=== PATIENT | female | born 1945 | race Caucasian/White ===

== ENCOUNTER 2016-11-29 10:18 | Emergency (ER) | payer MEDICARE, BC ==
[2016-11-29 10:40] LABS: Hematocrit 41.4 % (37.0-47.0); Hemoglobin 13.9 gm/dL (12.5-16.0); Mean Cell Volume 87.2 fl (78-100); Mean Corpuscular Hemoglobin 29.3 pg (27-31); Mean Corpuscular Hgb Conc 33.6 g/dl (32-36); Mean Platelet Volume 10.7 fl (6.0-9.5); Neutrophil # 3.6 K/mm3 (1.3-6.0); Neutrophil % 54.5 % (42-75.0); Platelet Count 251 K/mm3 (150-450); Red Blood Count 4.75 M/mm3 (4.2-5.4); Red Cell Distribution Width 13.4 % (11.5-14.0); White Blood Count 6.7 K/mm3 (4.0-10.5)
--- NOTE | 2016-11-29 10:40 | ERNOTE ---
Medical Problem HPI - Narrative Date of Service: 11/29/16 - General Chief Complaint: General Assessment Time Seen by Provider: 11/29/16 10:20 Source: patient Exam Limitations: no limitations - Immun/Allergies/Home Medications Immunizations: IMMUNIZATION HX Immunizations Up to Date Yes History of Influenza Vaccine No Hx Pneumococcal Vaccination Yes Allergies/Adverse Reactions: Allergies iodine Allergy (Verified 05/17/16 08:04) Sulfa (Sulfonamide Antibiotics) Allergy (Verified 05/17/16 08:04) Home Medications: HOME MEDICATIONS Furosemide [Lasix] 20 mg PO Q2D 11/13/16 [Last Taken Unknown] Potassium Chloride [Klor-Con 10] 10 meq PO Q2D 11/13/16 [Last Taken Unknown] Ramipril [Altace] 5 mg PO DAILY 11/13/16 [Last Taken Unknown] Rivaroxaban [Xarelto] 15 mg PO QPM 11/13/16 [Last Taken Unknown] glipiZIDE [Glipizide Xl] 10 mg PO BID 11/13/16 [Last Taken Unknown] - History of Present History Narrative: Pt. comes in with c/o irregular heart beat during cardiac rehab. Cardiac rehab therapist notes that pt. had three, three beat runs of VT while exercising. Pt. denies any SOB, CP, feeling palpitations, fever, lightheadedness, edema, cough, but does state that she has had recent nasal congestion and had an [place] in July and has a pacemaker for Afib with bradycardia. Review of Systems - Review of Systems Constitutional: Present: recent illness. Absent: fever, chills, weakness, fatigue, malaise EYE: Present: no symptoms reported ENT: Present: nose congestion, nasal drainage. Absent: ear pain, sore throat Respiratory: Present: no symptoms reported. Absent: shortness of breath, cough , wheezing Cardiology: Present: no symptoms reported. Absent: chest pain, palpitations, syncope, edema Gastrointestinal/Abdominal: Present: no symptoms reported. Absent: nausea, vomiting, diarrhea Genitourinary: Present: no symptoms reported. Absent: frequency, decreased urinary output Musculoskeletal: Present: no symptoms reported. Absent: back pain, joint pain Skin: Present: no symptoms reported Neurological: Present: no symptoms reported. Absent: headache, dizziness/light- headedness, numbness, tingling All Other Systems: All systems neg except as marked - Patient's Past Medical History Patient History - Medical: Diabetes Type 2 Patient History - Cardiac/Respiratory: Angina, Bronchitis, Myocardial Infarction , Pneumonia Patient History - Cancer: No Hx of Cancer Patient History - Surgical Procedures: No surgical history Patient History - Other: None - Social History Living Situations: home Abuse History: No History of abuse Psych History: No pertinent hx Alcohol Use: none Drug Use: none - Immunizations Immunizations Up to Date: Yes Hx Pneumococcal Vaccination: Yes History of Influenza Vaccine: No Physical Exam - Physical Exam General Appearance: Present: wd/wn, alert, no apparent distress Eye Exam: Normal inspection: bilateral, PERRL: bilateral, EOMI: bilateral Ears, Nose, Throat: Present: nasal congestion, normal pharynx Neck: Present: normal inspection, nontender. Absent: lymphadenopathy (R), lymphadenopathy (L) Respiratory: Present: no respiratory distress, normal breath sounds, no accessory muscle use, chest nontender, lungs clear Cardiovascular/Chest: Present: regular rate, rhythm, no murmur, normal peripheral pulses Gastrointestinal/Abdominal: Present: normal bowel sounds, nontender, nondistended, soft, no organomegaly Back Exam: Present: normal inspection, normal range of motion, no CVA tenderness , no vertebral tenderness. Absent: vertebral tenderness, decreased range of motion, muscle spasm Extremity Exam: Present: normal inspection, non-tender, normal range of motion, no edema Neurological Exam: Present: alert, oriented, normal mood/affect, no motor/ sensory deficits. Absent: creative coordinator II-XII nml as tested Skin Exam: Present: normal color, warm/dry. Absent: pallor, skin rash ED Progress - Date and Time Seen: Date and Time: 11/29/16 11:40 Discussed with her EP doctor Dr Robbins and we will place holter on pt for two weeks and have her follow up with them in two weeks. Pt. did not have any events here and has an AV pacemaker. - Results and Orders Patient's Lab Results:: I have reviewed the patient's lab results. - Vital Signs Patient's Vital Signs:: I have reviewed the patient's vital signs. Vital Signs: Vital Signs 11/29/16 10:22 Temperature 35.5 C L Pulse Rate 52 L Respiratory 16 Rate Blood Pressure 150/59 O2 Sat by Pulse 95 Oximetry - EKG EKG: other - atrial case EKG read: Reviewed by me EKG Comments: Interpretted by Dr Cortez - X-Ray X-Ray #1 X-Ray: chest Interpretation: Reviewed by me X-ray Comments: no consolidation or infiltrate noted - Progress/Reassessment Chief Complaint: General Assessment Progress:: Unchanged Departure - Departure Clinical Impression: Arrhythmia Qualifiers: Arrhythmia type: unspecified cardiac arrhythmia Qualified Code(s): I49.9 - Cardiac arrhythmia, unspecified Disposition: Home self-care Condition: Good Instructions: Heartbeats (How the Heart Works) Additional Instructions: Please follow up with primary provider in 2-3 days and with your EP physicians in 2 weeks. Referrals: Brandy Nolasco MD [Primary Care Provider] -
--- OUTSIDE RECORDS SUMMARY | 2016-11-29 10:54 | XMS REPORT | Continuity of Care Document ---
:1945 Author Organization [facility] ([facility]) Address [place] [address] Phone [phone] Care Team Providers Name Role Phone Brandy Nolasco Primary Care Provider [phone] Source Comments This disclosure is being made pursuant to the Care Everywhere program, applicable federal and state laws, and may not contain all informaitonavailable regarding this patient.[facility] ([facility]) Active Allergies and Adverse Reactions Allergen Noted Date Severity Reactions Comments Iodine 10/03/2009 Respiratory "pain in her heart" Distress,Rhinorrhea Sulfa (Sulfonamide 10/03/2009 Rash Antibiotics) Current Medications Prescription Sig. Disp. Refills Start Date End Date Status furosemide 20 mg Take 20 mg by Active tablet mouth every 48 hours. ramipril 5 mg Take 5 mg by Active capsule mouth daily. glipiZIDE 10 mg Take 10 mg by Active tablet mouth 2 times daily with meals. potassium chloride Take 10 mEq by Active 10 mEq XR tablet mouth every 48 hours. rivaroxaban Take 1 tablet 30 tablet 0 06/26/2016 Active (XARELTO) 15 mg (15 mg total) tablet by mouth every evening with dinner. meclizine Take 25 mg by 11/21/2016 Discontinued (ANTIVERT) 25 mg mouth 3 times tablet daily as needed. carvedilol 3.125 mg Take 3.125 mg 11/21/2016 Discontinued tablet by mouth 2 times daily with meals. Active Problems Problem Noted Date Hyperlipidemia 10/18/2016 S/P cardiac pacemaker procedure -- [employer] 06/24/2016 Paroxysmal atrial fibrillation 06/19/2016 Overview: Diagnosed 06/2016 in the setting of stress induced cardiomyopathy. 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 Overview: Resolved Atopic dermatitis 02/03/2014 Fatty liver 01/14/2014 Hepatitis A 01/14/2014 DM type 2 (diabetes mellitus, type 2) 10/03/2009 Most Recent Encounters Date Type Specialty Providers Description 11/21/2016 Office Visit Cardiac Rehabilitation Demetri, Dx: Abnormal EKG MD Ayana (Primary Dx) 10/18/2016 Telephone Heart and Vascular Demetri, Chief Comp: MD Ayana Discuss Treatment Options 10/02/2016 Hospital [facility] V[facility] Default, Other Chief Comp: Encounter Billg - Defo Patient Reported Demetri, Reason For Visit MD Ayana 10/02/2016 Office Visit Heart and Vascular Default, Other Dx: S/P cardiac Billg - Defo pacemaker Demetri, procedure -- MD Ayana [employer] (Primary Dx) 09/25/2016 Office Visit Heart and Vascular Default, Other Chief Comp: Billg - Defo Patient Reported Demetri, Reason For Visit MD Ayana Social History Tobacco Use Types Packs/Day Years Used Date Never Smoker Smokeless Tobacco: Never Used Tobacco Cessation:Counseling Given: Yes Comments: Alcohol Use Drinks/Week oz/Week Comments No Last Filed Vital Signs Vital Sign Reading Time Taken Blood Pressure 100/76 11/21/2016 9:31 AM CDT Pulse 54 11/21/2016 9:31 AM CDT Temperature 36.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 (97 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 Respiratory Rate 16 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 Height 1.651 m (5' 5") 11/21/2016 9:29 AM CDT Weight 108.7 kg (239 lb 10.2 oz) 11/21/2016 9:29 AM CDT Body Mass Index 39.88 11/21/2016 9:29 AM CDT Oxygen Saturation 95% 11/21/2016 9:31 AM CDT Plan of Care Date Type Specialty Providers Description 02/19/2017 Appointment Heart and Vascular Demetri, Chief Comp: Patient MD Ayana Reported Reason For [address] [place] [address] [phone] (Fax) Health Maintenance Due Date Last Done Comments HCV Screening 1945 Hepatitis B Vaccine (1 of 3 - Primary 1945 Series) Tdap Vaccine 1957 Td Vaccine 1964 Mammogram 1986 Colonoscopy 09/13/1996 Zoster Vaccine 2006 DIABETIC: Cholesterol 10/03/2010 10/03/2009 Diabetic: Hdl 10/03/2010 10/03/2009 Diabetic: Ldl 10/03/2010 10/03/2009 DIABETIC: Microalbumin 10/03/2010 10/03/2009 DIABETIC: Triglycerides 10/03/2010 10/03/2009 DIABETIC: Foot Exam 01/15/2011 Osteoporosis Screening (DXA Bone Density) 2011 Pneumococcal Vaccine (1 of 2 - PCV13) 2011 DIABETIC: Retinal Eye Exam 01/14/2015 01/14/2014, 01/14/2014 DIABETIC: Hemoglobin A1C 12/20/2016 06/22/2016, 10/03/2009 Influenza Vaccine: Seasonal (Season Ended) 2017 Results from Last 3 Months ECG - EKG 12 LEAD (11/21/2016 9:50 AM)Only the most recent of2 resultswithin the time period is included. Component Value Range ECG SEVERITY - ABNORMAL ECG - VENT. RATE 51 bpm RR 1176 ms P-R INTERVAL 186 ms QRSD INTERVAL 90 ms QT INTERVAL 408 ms QTC INTERVAL 376 ms P AXIS -14 degrees QRS AXIS -25 degrees T WAVE AXIS 158 degrees REPORT ATRIAL-PACED COMPLEXES BORDERLINE LEFT AXIS DEVIATION CONSIDER ANTERIOR INFARCT NONSPECIFIC T ABNORMALITIES, ANT-LAT LEADS Interpreting Physician: James Breen MD
[2016-11-29 10:59] LABS: Troponin I Less than 0.017 ng/ml (0.00-0.10)
[2016-11-29 11:03] LABS: ALT 44 U/L (19-67); AST 25 U/L (0-48); Albumin * 3.8 gm/dl (3.4-5.0); Alkaline Phosphatase * 76 U/L (50-170); Anion Gap 12.1 mmol/L (6.8-13.8); BUN/Creatinine Ratio 23.9 (9.0-21.6); Bilirubin, Total 0.4 mg/dL (0.0-1.1); Blood Urea Nitrogen 22 mg/dL (3-23); Ca. Corrected For Albumin 9.2 mg/dL (8.4-10.2); Calcium * 9.4 mg/dL (7.9-10.9); Carbon Dioxide 30.3 mmol/L (24-32.6); Chloride 104 mmol/L (97-106); Glucose * 193 mg/dL (70-110); INR 1.09 INR (0.90-1.10); Partial Thrombolplastin Time 32.2 Seconds (24-32); Potassium 4.4 mmol/L (3.4-4.6); Prothrombin Time (Patient) 11.3 Seconds (9.4-11.4); Sodium 142 mmol/L (132-142); TSH * 2.071 uIU/mL (0.358-3.74); Total Protein 7.7 gm/dL (6.2-8.2)
[2016-11-29 11:40] VITALS: BP 137/61
== END 2016-11-29 11:55 | disposition home or self-care (01) ==
LOC: ER 10:18
DX: I47.2 Ventricular tachycardia (principal); Z95.0 Presence of cardiac pacemaker; I25.2 Old myocardial infarction; I48.91 Unspecified atrial fibrillation; R00.1 Bradycardia, unspecified

== ENCOUNTER 2016-12-19 11:29 | Emergency (ER) | payer MEDICARE, BC ==
[2016-12-19 12:08] LABS: Hematocrit 39.1 % (37.0-47.0); Hemoglobin 13.6 gm/dL (12.5-16.0); Mean Cell Volume 85.6 fl (78-100); Mean Corpuscular Hemoglobin 29.8 pg (27-31); Mean Corpuscular Hgb Conc 34.8 g/dl (32-36); Mean Platelet Volume 10.6 fl (6.0-9.5); Neutrophil # 3.4 K/mm3 (1.3-6.0); Platelet Count 217 K/mm3 (150-450); Red Blood Count 4.57 M/mm3 (4.2-5.4); Red Cell Distribution Width 13.5 % (11.5-14.0); White Blood Count 6.2 K/mm3 (4.0-10.5)
[2016-12-19 12:28] LABS: Prothrombin Time (Patient) 11.5 Seconds (9.4-11.4)
[2016-12-19 12:32] LABS: Troponin I Less than 0.017 ng/ml (0.00-0.10)
[2016-12-19 12:37] LABS: ALT 29 U/L (19-67); AST 16 U/L (0-48); Albumin * 3.4 gm/dl (3.4-5.0); Alkaline Phosphatase * 74 U/L (50-170); Anion Gap 12.1 mmol/L (6.8-13.8); BNP * 149 pg/mL (5-325); BUN/Creatinine Ratio 19.2 (9.0-21.6); Bilirubin, Total 0.4 mg/dL (0.0-1.1); Blood Urea Nitrogen 19 mg/dL (3-23); Ca. Corrected For Albumin 9.1 mg/dL (8.4-10.2); Calcium * 8.9 mg/dL (7.9-10.9); Chloride 102 mmol/L (97-106); Glucose * 253 mg/dL (70-110); Potassium 4.1 mmol/L (3.4-4.6); Sodium 139 mmol/L (132-142); Total Protein 7.2 gm/dL (6.2-8.2)
[2016-12-19 12:38] LABS: INR 1.11 INR (0.90-1.10)
--- OUTSIDE RECORDS SUMMARY | 2016-12-19 13:32 | XMS REPORT | Continuity of Care Document ---
:1945 Author Organization [facility] ([facility]) [place] [address] Phone [phone] Care Team Providers Name Role Phone Brandy Nolasco Primary Care Provider [phone] Source Comments This disclosure is being made pursuant to the Care Everywhere program, applicable federal and state laws, and may not contain all informaitonavailable regarding this patient.[facility] ([facility]) Active Allergies and Adverse Reactions Allergen [...] Hyperlipidemia 10/18/2016 S/P cardiac pacemaker procedure -- [employer] 06/24/2016 Paroxysmal atrial fibrillation 06/19/2016 Overview: Diagnosed 06/2016 in the setting of stress induced cardiomyopathy. 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 Overview: Resolved Atopic dermatitis 02/03/2014 Fatty liver 01/14/2014 Hepatitis A 01/14/2014 DM type 2 (diabetes mellitus, type 2) 10/03/2009 Most Recent Encounters Date Type Specialty Providers Description 11/29/2016 Telephone Heart and Vascular Aidan Robbins Chief Comp: MD Roxanne Consultation 11/21/2016 Office Visit Cardiac Rehabilitation Demetri, Dx: Abnormal EKG MD Ayana (Primary Dx) 10/18/2016 Telephone Heart and Vascular Demetri, Chief Comp: Discuss MD Ayana Treatment Options 10/02/2016 Hospital Heart and Vascular Default, Other Chief Comp: Patient Encounter Billg - Defo Reported Reason For Demetri, Visit MD Ayana 10/02/2016 Office Visit Heart and Vascular Default, Other Dx: S/P cardiac Billg - Defo pacemaker procedure Demetri, -- [employer]on Pi[employer] (Primary Dx) 09/25/2016 Office Visit Heart and Vascular Default, Other Chief Comp: Patient Billg - Defo Reported Reason For Demetri, Visit MD Ayana Social History Tobacco Use Types Packs/Day Years Used Date Never Smoker Smokeless Tobacco: Never Used Tobacco Cessation:Counseling Given: Yes Comments: Alcohol Use Drinks/Week oz/Week Comments No Last Filed Vital Signs Vital Sign Reading Time Taken Blood Pressure 100/76 11/21/2016 9:31 AM CDT Pulse 54 11/21/2016 9:31 AM CDT Temperature 36.1 C (97 F) 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
--- NOTE | 2016-12-19 13:41 | ERNOTE ---
Dyspnea - Date Date of Service: 12/19/16 - General Presenting Symptoms: shortness of breath, difficulty of breathing Source: patient Exam Limitations: no limitations - Immun/Allergies/Home Medications Immunizations: IMMUNIZATION HX Immunizations Up to Date Yes History of Influenza Vaccine Yes Hx Pneumococcal Vaccination Yes Allergies/Adverse Reactions: Allergies iodine Allergy (Verified 12/19/16 11:45) Sulfa (Sulfonamide Antibiotics) Allergy (Verified 12/19/16 11:45) Home Medications: HOME MEDICATIONS Furosemide [Lasix] 20 mg PO Q2D 11/13/16 [Last Taken Unknown] Potassium Chloride [Klor-Con 10] 10 meq PO Q2D 11/13/16 [Last Taken Unknown] Ramipril [Altace] 5 mg PO DAILY 11/13/16 [Last Taken Unknown] Rivaroxaban [Xarelto] 15 mg PO QPM 11/13/16 [Last Taken Unknown] glipiZIDE [Glipizide Xl] 10 mg PO BID 11/13/16 [Last Taken Unknown] Metoprolol Tartrate [Lopressor] 25 mg PO DAILY 12/19/16 [Last Taken Unknown] - History of Present Illness Date (Duration): 12/19/16 Severity: mild Treatment PROCESSING SPECIALIST: none Initiating event: Reports: sports/exercise Frequency of episodes: Reports: occassional episodes Modifying Factors - (Improves): Reports: rest Modifying Factors (Worsens): Reports: activity Associated Symptoms-Dyspnea: Reports: denies symptoms Prior Treatment: Reports: recently seen Review of Systems - Review of Systems Constitutional: Present: malaise, decreased activity level EYE: Present: no symptoms reported ENT: Present: no symptoms reported Respiratory: Present: shortness of breath, orthopnea Cardiology: Present: no symptoms reported Gastrointestinal/Abdominal: Present: no symptoms reported Genitourinary: Present: no symptoms reported Musculoskeletal: Present: no symptoms reported Skin: Present: no symptoms reported Neurological: Present: no symptoms reported Endocrine: Present: no symptoms reported Hematologic/Lymphatic: Present: no symptoms reported Psych: Present: no symptoms reported All Other Systems: All systems neg except as marked - Patient's Past Medical History Patient History - Medical: Diabetes Type 2 Patient History - Cardiac/Respiratory: Angina, Atrial Fibrillation, Asthma, Bronchitis, CHF, Myocardial Infarction, Pneumonia Patient History - Cancer: No Hx of Cancer Patient History - Surgical Procedures: No surgical history, Pacemaker Patient History - Other: None LMP (females 10-50): Menopausal - Family History Family History:: no untoward family reactions to anesthesia, no familial bleeding tendencies - Social History Living Situations: home Abuse History: No History of abuse Psych History: No pertinent hx Does anyone smoke in the home?: No Smoking Status: Never smoker Alcohol Use: none Drug Use: none - Immunizations Immunizations Up to Date: Yes Hx Pneumococcal Vaccination: Yes History of Influenza Vaccine: Yes Physical Exam - Physical Exam General Appearance: Present: no apparent distress, moderate distress, severe distress Eye Exam: Normal inspection: bilateral, PERRL: bilateral, EOMI: bilateral Ears, Nose, Throat: Present: normal ENT inspection Neck: Present: normal inspection, nontender Respiratory: Present: no respiratory distress, normal breath sounds, no accessory muscle use, chest nontender, lungs clear Cardiovascular/Chest: Present: regular rate, rhythm, no murmur, normal peripheral pulses Peripheral Pulses: N=norm/S=strong/W=weak/B=bound/A=absent: Carotid (R): Normal , Carotid (L): Normal, Radial (R): Normal, Radial (L): Normal, Femoral (R): Normal, Femoral (L): Normal, Dorsalis-pedis (R): Normal Gastrointestinal/Abdominal: Present: normal bowel sounds, nontender, nondistended, soft, no organomegaly Rectal Exam: Present: nontender, normal rectal tone Back Exam: Present: normal inspection, normal range of motion, no CVA tenderness , no vertebral tenderness Extremity Exam: Present: normal inspection, non-tender, normal range of motion, no edema Neurological Exam: Present: alert, oriented, normal mood/affect, no motor/ sensory deficits DTR: N=norm/NB=norm/brisk/A=abs/DD=dull/dimin/HC=hyperactive: Bicep (R): Normal , Bicep (L): Normal, Tricep (R): Normal, Tricep (L): Normal, Knee (R): Normal, Knee (L): Normal, Ankle (R): Normal Skin Exam: Present: normal color, warm/dry Lymphatic Exam: Present: no adenopathy ED Progress - Results and Orders Patient's Lab Results:: I have reviewed the patient's lab results. - Vital Signs Patient's Vital Signs:: I have reviewed the patient's vital signs. Vital Signs: Vital Signs 12/19/16 12/19/16 12/19/16 11:36 11:49 11:59 Temperature 36.1 C L Pulse Rate 50 L 53 L 50 L Respiratory 16 11 L Rate Blood Pressure 163/59 116/60 O2 Sat by Pulse 98 96 Oximetry 12/19/16 12/19/16 12/19/16 12:12 12:35 13:11 Temperature 36.1 C L 36.2 C L Pulse Rate 50 L 50 L 50 L Respiratory 16 17 14 Rate Blood Pressure 123/60 155/78 111/72 O2 Sat by Pulse 95 93 94 Oximetry - EKG EKG: unchanged from, other - paced rhythm - Progress/Reassessment Chief Complaint: Dyspnea Progress:: Pain free at discharge - Transfer of Care Expected Disposition: Discharge Plan - Plan Plan: patient without symptoms, to f/u with cardiology, will return if symptoms reoccur Departure Clinical Impression: Dyspnea on exertion - Departure Disposition: Home self-care Condition: Fair Instructions: Hypoxemia Referrals: Brandy Nolasco MD [Primary Care Provider] -
[2016-12-19 13:55] VITALS: BP 113/65
== END 2016-12-19 14:08 | disposition home or self-care (01) ==
LOC: ER 11:29
DX: R06.09 Other forms of dyspnea (principal); E11.9 Type 2 diabetes mellitus without complications; I20.9 Angina pectoris, unspecified; I48.91 Unspecified atrial fibrillation; Z79.01 Long term (current) use of anticoagulants; J45.909 Unspecified asthma, uncomplicated; I50.9 Heart failure, unspecified; I25.2 Old myocardial infarction